=== PATIENT | female | born 2000 | race African-American/Black ===

== ENCOUNTER 2022-10-24 09:38 | Emergency (ER) | payer OTHER ==
[~2022-10-24] VITALS: Ht 177 cm; Wt 190.0 kg
--- NOTE | 2022-10-24 09:49 | ED Lower Extremity ---
General Chief Complaint: Lower Extremity Stated Complaint: L KNEE PAIN Source: patient Exam Limitations: no limitations History of Present Illness Date Seen by Provider: Oct 24, 2022 Time Seen by Provider: 09:49 Initial Comments 22yo femal to the ER with Left knee pain as a result from a fall from a stool yesterday. Able to bear weight - but it hurts. Painful ROM. Has not taken anything for th epain or done any ice to the knee. Pain radiates up and down leg from the knee. No prior injuries or surgeries to this knee. Onset: yesterday Severity: severe Pain/Injury Location: left knee Method of Injury: fell Modifying Factors: Worse With Movement Allergies and Home Medications Allergies Coded Allergies: No Known Drug Allergies (Unverified , 10/24/22) Patient Home Medication List Home Medication List Reviewed: Yes Review of Systems Constitutional: see HPI Respiratory: no symptoms reported Cardiovascular: no symptoms reported Gastrointestinal: no symptoms reported Musculoskeletal: joint pain (left knee), other (pain up and down leg that radiates from knee cap) Skin: no symptoms reported All Other Systems Reviewed Negative Unless Noted: Yes Past Fiospvj-Zqvoaw-Jrlkje Hx Patient Social History Tobacco Use?: No Substance use?: No Alcohol Use?: No Pt feels they are or have been: No Past Medical History Surgery/Hospitalization HX: sx: hernia repair Physical Exam Vital Signs Vital Signs - First Documented 10/24/22 09:44 Temp 35.8 Pulse 133 Resp 16 B/P (MAP) 147/83 (104) Pulse Ox 98 Capillary Refill : Height, Weight, BMI Height: '" Weight: lbs. oz. kg; BMI Method: General Appearance: WD/WN, mild distress (tearful due to pain in knee) HEENT: PERRL/EOMI Cardiovascular: regular rate, rhythm Respiratory: no respiratory distress, no accessory muscle use Hips: bilateral hip non-tender, bilateral hip normal inspection, bilateral hip normal range of motion, bilateral hip no evidence of injury Legs: bilateral leg normal inspection, bilateral leg normal range of motion Knees: right knee non-tender, right knee normal inspection, right knee normal range of motion, right knee no evidence of injury; left knee bone tenderness (over patella), left knee joint effusion (medial knee), left knee pain, left knee soft tissue tenderness, left knee swelling Ankles: bilateral ankle non-tender, bilateral ankle normal inspection, bilateral ankle normal range of motion, bilateral ankle no evidence of injury Feet: bilateral foot non-tender, bilateral foot normal inspection, bilateral foot normal range of motion, bilateral foot no evidence of injury Neurologic/Tendon: normal sensation, normal motor functions, normal tendon functions Neurologic/Psychiatric: alert, normal mood/affect, oriented x 3 Skin: normal color, warm/dry Progress/Results/Core Measures Results/Orders My Orders Orders - PILLO LOUIE MD Ibuprofen Tablet (Ibuprofen Tablet) (10/24/22 10:00) Knee, Left, 4 Views Or > (10/24/22 09:59) Medications Given in ED Current Medications Medications Dose Ordered Sig/Noam Route Start Time Stop Time Status Last Admin Dose Admin Ibuprofen 600 mg ONCE ONCE PO 10/24/22 10:00 10/24/22 10:01 DC 10/24/22 10:30 600 MG Vital Signs/I&O 10/24/22 09:44 Temp 35.8 Pulse 133 Resp 16 B/P (MAP) 147/83 (104) Pulse Ox 98 Diagnostic Imaging Diagonstic Imaging: Xray Comments [facility], [place] NAME: ANGELIQUE BARRAGAN [facility] REC#: [id number] PT STATUS: REG ER : 2001 PHYSICIAN: PILLO LOUIE MD ADMIT DATE: 10/24/22/ER Draft Date of Exam:10/24/22 KNEE, LEFT, 4 VIEWS OR > INDICATION: Fall with left knee pain and swelling. COMPARISON: 05/11/2015. DISCUSSION: Four views of the left knee were obtained. Small effusion is present. Joint spaces are maintained. No fracture or dislocation. Alignment is anatomic. IMPRESSION: 1. Small left knee effusion. No fracture. Dictated on workstation # [id number] Dict: 10/24/22 1023 Trans: 10/24/22 1027 [id number] Interpreted by: INDIA PETERS MD Electronically signed by: Departure Impression Primary Impression: Contusion of left knee, initial encounter Additional Impression: Knee effusion, left Disposition: 01 HOME, SELF-CARE Condition: Stable Departure-Patient Inst. Decision time for Depature: 10:34 Referrals: NO,LOCAL PHYSICIAN (PCP/Family) Primary Care Physician Patient Instructions: Knee Pain ED Add. Discharge Instructions: Use an ice pack to the left knee 20 minutes at a time every 2-3 hours. Over the counter ibuprofen 600mg (3 pills) every 6 hours with food as needed for pain., PRIMO wrap the knee for discomfort and while sitting/laying elevate it above the level of your heart to reduce swelling. Return to the Emergency Department for any new, concerning or emergent complaints. PILLO LOUIE MD Oct 24, 2022 09:49
[2022-10-24] MEDS ORDERED: IBUPROFEN 600 MG TABLET PO ONE (10:00)
--- NOTE | 2022-10-24 10:27 | Diagnostic Imaging Report ---
INDICATION: Fall with left knee pain and swelling. COMPARISON: 05/11/2015. DISCUSSION: Four views of the left knee were obtained. Small effusion is present. Joint spaces are maintained. No fracture or dislocation. Alignment is anatomic. IMPRESSION: 1. Small left knee effusion. No fracture. Dictated by: Dictated on workstation # [id number]
[2022-10-24 10:44] VITALS: BP 147/83
== END 2022-10-24 10:45 | disposition home or self-care (01) ==
LOC: ER 09:39
DX: S80.02XA Contusion of left knee, initial encounter (principal); M25.462 Effusion, left knee; W08.XXXA Fall from other furniture, initial encounter
CPT/HCPCS: 73564; 99283